=== PATIENT | female | born 1985 | race Two or more races ===

== ENCOUNTER 2024-10-24 16:26 | Inpatient (IN) | payer MEDICARE, MEDICAID ==
[~2024-10-24] VITALS: Ht 154.9 cm; Wt 137.4 kg
[2024-10-24] MEDS ORDERED: ZOLPIDEM TARTRATE 10 MG TABLET PO PRN (18:00)
[2024-10-24 19:55] LABS: COVID AG,FIA SOURCE NASAL SWAB
[2024-10-24 20:14] LABS: SARS-COV2 (COVID) ANTIGEN,FIA Negative (Negative)
[2024-10-24 20:26] LABS: BASOPHILS % (AUTO) 0.2 % (0.0-2.0); EOSINOPHILS % (AUTO) 1.5 % (1.0-6.0); HEMATOCRIT 38.8 % (36-46); LYMPHOCYTES # (AUTO) 2.1 K/uL (1.0-4.8); LYMPHOCYTES % (AUTO) 29.5 % (22.0-44.0); MEAN CORPUSCULAR HEMOGLOBIN 28.6 pg (26.0-34.0); MEAN CORPUSCULAR HGB CONC 33.4 G/dL (31.0-37.0); MEAN CORPUSCULAR VOLUME 86 fL (80-100); MONOCYTES # (AUTO) 0.4 K/uL (0.1-1.0); MONOCYTES % (AUTO) 5.2 % (2.0-9.0); NEUTROPHILS # (AUTO) 4.6 K/uL (1.8-7.7); NEUTROPHILS % (AUTO) 63.6 % (40.0-70.0); PLATELET COUNT (AUTO) 268 K/uL (150-450); RED BLOOD CELL COUNT(AUTO) 4.53 MIL/uL (4.00-5.20); RED CELL DISTRIBUTION WIDTH 14.9 % (11.5-14.5); WHITE BLOOD COUNT (AUTO) 7.2 K/uL (4.5-11.0)
[2024-10-24] MEDS: TraZODone HCL 50 MG TABLET PO ONE (20:30)
[2024-10-24] MEDS: OXcarbazepine 300 MG TABLET PO ONE (20:30)
[2024-10-24] MEDS: IBUPROFEN 600 MG TABLET PO ONE (20:30)
[2024-10-24] MEDS: QUEtiapine FUMARATE 100 MG TABLET PO ONE (20:30)
[2024-10-24 20:31] LABS: ANION GAP 9 mmol/L (8-16); CALCIUM, TOTAL 8.8 mg/dL (8.8-10.5); CARBON DIOXIDE 25 mmol/L (22-29); CHLORIDE 105 mmol/L (98-107); CREATININE 0.82 mg/dL (0.60-1.30); GLOMERULAR FILTR. RATE CALC > 60 mL/min (>60); GLUCOSE,RANDOM 112 mg/dL (70-110); POTASSIUM 3.7 mmol/L (3.5-5.1); SODIUM SERUM 139 mmol/L (136-145); UREA NITROGEN, BLOOD 13 mg/dL (7-18)
[2024-10-25 07:43] LABS: APPEARANCE,URINE CLEAR (CLEAR); BILIRUBIN,URINE NEGATIVE (NEGATIVE); COLOR,URINE YELLOW (YELLOW); GLUCOSE, URINE (UA) NEGATIVE (NEGATIVE); KETONES,URINE NEGATIVE (NEGATIVE); LEUKOCYTE ESTERASE ,URINE NEGATIVE (NEGATIVE); NITRATE,URINE NEGATIVE (NEGATIVE); OCCULT BLOOD,URINE NEGATIVE (NEGATIVE); PH,URINE 5.5 (5.0-8.0); PROTEIN,URINE TRACE mg/dL (NEGATIVE); SPECIFIC GRAVITIY, URINE 1.029 (1.003-1.030); UROBILINOGEN,URINE <=1.0 mg/dL (<=1.0)
[2024-10-25 07:53] LABS: ALCOHOL, URINE DRUG SCREEN NEGATIVE (NEGATIVE); AMPHET/METH SCREEN,URINE NEGATIVE (NEGATIVE); BARBITURATE SCREEN, URINE NEGATIVE (NEGATIVE); BENZODIAZEPINES SCREEN,URINE NEGATIVE (NEGATIVE); CANNABINOID SCREEN,URINE NEGATIVE (NEGATIVE); COCAINE SCREEN,URINE NEGATIVE (NEGATIVE); METHADONE SCREEN, URINE NEGATIVE (NEGATIVE); OPIATE SCREEN,URINE NEGATIVE (NEGATIVE); PHENCYCLIDINE SCREEN,URINE NEGATIVE (NEGATIVE)
[2024-10-25 08:10] LABS: PH,URINE DRUG SCREEN 5.5 (5.0-8.0)
[2024-10-25] MEDS: DiphenhydrAMINE HCL 50 MG/ML VIAL IM ONE (13:05)
[2024-10-25] MEDS: LORazepam 2 MG/ML VIAL IM ONE (13:05)
[2024-10-25] MEDS: haloperidoL LACTATE 5 MG/ML VIAL IM ONE (13:06)
[2024-10-25] MEDS: QUEtiapine FUMARATE 100 MG TABLET PO PRN (22:17)
[2024-10-25] MEDS: LORazepam 2 MG TABLET PO PRN (22:17)
[2024-10-26 00:30] VITALS: BP 110/66; PULSE 66; RESP 16; TEMP 98; O2SAT 98
[2024-10-26 00:41] VITALS: BP 110/66; PULSE 66; RESP 16; TEMP 98; O2SAT 98
[2024-10-26] MEDS ORDERED: MAG HYDROX/ALUMINUM HYD/SIMETH ES 30 ML SUSPENSION UDCUP PO PRN (07:45)
[2024-10-26] MEDS ORDERED: CloNIDine HCL 0.1 MG TABLET PO PRN (07:45)
[2024-10-26] MEDS ORDERED: ONDANSETRON 4 MG TABLET PO PRN (07:45)
[2024-10-26] MEDS ORDERED: OMEPRAZOLE 20 MG CAPSULE PO PRN (07:45)
[2024-10-26] MEDS ORDERED: ACETAMINOPHEN 325 MG TABLET PO PRN (07:45)
[2024-10-26] MEDS ORDERED: BACITRACIN 28 GM OINTMENT TP PRN (07:45)
[2024-10-26] MEDS ORDERED: LOPERAMIDE HCL 2 MG CAPSULE PO PRN (07:45)
[2024-10-26] MEDS ORDERED: DOCUSATE SODIUM 100 MG CAPSULE PO PRN (07:45)
[2024-10-26] MEDS ORDERED: PETROLATUM,WHITE 28 GM JELLY TP PRN (07:45)
[2024-10-26] MEDS ORDERED: ALBUTEROL SULFATE HFA 90 MCG/PUFF 8 GM INHALER IH PRN (07:45)
[2024-10-26] MEDS ORDERED: BENZOCAINE/MENTHOL [CEPACOL] LOZENGE PO PRN (07:45)
[2024-10-26] MEDS ORDERED: MAGNESIUM HYDROXIDE SUSPENSION 30 ML UDCUP PO PRN (07:45)
[2024-10-26 09:10] VITALS: BP 102/64; PULSE 62; RESP 18; TEMP 97.8; O2SAT 98
[2024-10-26] MEDS: OMEGA-3/DHA/EPA/FISH OIL 1,000 MG CAPSULE PO SCH (17:02)
[2024-10-26] MEDS: OXcarbazepine 300 MG TABLET PO SCH (17:02)
[2024-10-26 20:29] VITALS: BP 97/63; PULSE 62; RESP 18; TEMP 97.6; O2SAT 99
[2024-10-26] MEDS: QUEtiapine FUMARATE 100 MG TABLET PO SCH (20:33)
[2024-10-27] MEDS: LEVOTHYROXINE SODIUM 75 MCG TABLET PO SCH (06:29)
[2024-10-27 08:47] VITALS: BP 95/58; PULSE 61; RESP 18; TEMP 97.9; O2SAT 99
[2024-10-27 20:34] VITALS: BP 98/68; PULSE 66; RESP 18; TEMP 97.9; O2SAT 96
[2024-10-28 08:53] VITALS: BP 98/56; PULSE 67; RESP 19; TEMP 97.9; O2SAT 97
[2024-10-28 20:32] VITALS: BP 120/74; PULSE 68; RESP 19; TEMP 97.3; O2SAT 100
[2024-10-29 08:43] VITALS: BP 111/78; PULSE 72; RESP 19; TEMP 97.8; O2SAT 100
[2024-10-29 17:09] VITALS: BP 101/69; PULSE 76; RESP 18
[2024-10-29] MEDS: IBUPROFEN 600 MG TABLET PO PRN (17:09)
[2024-10-29 18:09] VITALS: RESP 18
[2024-10-29 20:31] VITALS: BP 110/66; PULSE 91; RESP 18; TEMP 97.7; O2SAT 96
[2024-10-30 08:44] VITALS: BP 110/64; PULSE 73; RESP 18; TEMP 98.3; O2SAT 98
[2024-10-30] MEDS ORDERED: QUET100T PO (10:49)
[2024-10-30] MEDS ORDERED: OMEG-86 PO (10:52)
[2024-10-30] MEDS ORDERED: OXCA300T70 PO (10:53)
[2024-10-30] MEDS ORDERED: QUET50TA PO (10:54)
[2024-10-30] MEDS ORDERED: LEVO75 PO (11:06)
== END 2024-10-30 12:12 | DRG 885 ==
LOC: EMS 16:30 → EDSEX 16:30 → B2X 10-25 18:47
PROVIDERS: ADMIT Psychiatry & Neurology Psychiatry; ATTEND Psychiatry & Neurology Psychiatry
DX: F31.9 Bipolar disorder, unspecified (principal); R45.851 Suicidal ideations; Z68.43 Body mass index [BMI] 50.0-59.9, adult; E66.01 Morbid (severe) obesity due to excess calories; I10 Essential (primary) hypertension; E03.9 Hypothyroidism, unspecified; F25.0 Schizoaffective disorder, bipolar type; Z20.822 Contact with and (suspected) exposure to COVID-19; F41.9 Anxiety disorder, unspecified; G47.00 Insomnia, unspecified; K59.00 Constipation, unspecified
CPT/HCPCS: 80048; 80307; 81003; 84703; 85025; G0480; J1200; J1630; J2060

== ENCOUNTER 2024-11-13 01:56 | Emergency (ER) | payer MEDICARE, OTHER ==
[~2024-11-13 01:56] MED LIST: LEVO75 PO; OMEG-86 PO; OXCA300T70 PO; QUET100T PO
[2024-11-13 04:52] LABS: COVID AG,FIA SOURCE NASAL SWAB
[2024-11-13 05:20] LABS: SARS-COV2 (COVID) ANTIGEN,FIA Negative (Negative)
== END 2024-11-13 07:35 | disposition home or self-care (01) ==
LOC: EMS 03:35
DX: F25.0 Schizoaffective disorder, bipolar type (principal); R45.851 Suicidal ideations; I10 Essential (primary) hypertension; E03.9 Hypothyroidism, unspecified; F31.9 Bipolar disorder, unspecified; Z20.822 Contact with and (suspected) exposure to COVID-19; Z79.899 Other long term (current) drug therapy
CPT/HCPCS: 99283